=== PATIENT | female | born 1940 | race Caucasian/White ===

== ENCOUNTER 2016-08-19 05:32 | Observation (INO) | payer OTHER ==
[~2016-08-19] VITALS: Ht 174 cm; Wt 97.1 kg
[2016-08-19] VITALS (11 sets, daily range): BP systolic 100–146; BP diastolic 55–82
[~2016-08-19 05:32] MED LIST: ADV250 IH; ALBU8.5H IH; ASPI-1093 PO; ATOR10TA84 PO; AUD NEB; BUPR100SR PO; CYPR4TAB35 PO; DICY10 PO; DOXA2TAB PO; FOLI0.8T22 PO; FURO80 PO; HYDR-309 PO; LOSA50TA37 PO; NIFE30TA98 PO; PANT40TA25 PO; PHOSLOC PO; POTA10TA PO; ZARO5 PO; [UNRECOGNIZED DRUG - CODE] PO
[2016-08-19] MEDS ORDERED: SODIUM CHLORIDE 0.9% 0 ML IV ONE (05:49)
[2016-08-19] MEDS ORDERED: SODIUM CHLORIDE 0.9% 1,000 ML IV ONE ×2 (06:00→16:19)
[2016-08-19 06:38] LABS: BASOPHILS % (AUTO) 0.8 % (0.0-2.0); EOSINOPHILS % (AUTO) 4.7 % (1.0-6.0); HEMATOCRIT 33.4 % (36-46); HEMOGLOBIN 10.4 g/dL (12.0-16.0); LYMPHOCYTES # (AUTO) 2.3 K/uL (1.0-4.8); LYMPHOCYTES % (AUTO) 36.6 % (22.0-44.0); MEAN CORPUSCULAR HEMOGLOBIN 30.7 pg (26.0-34.0); MEAN CORPUSCULAR HGB CONC 31.1 G/dL (31.0-37.0); MEAN CORPUSCULAR VOLUME 99 fL (80-100); MONOCYTES # (AUTO) 0.6 K/uL (0.1-1.0); NEUTROPHILS # (AUTO) 3.1 K/uL (1.8-7.7); NEUTROPHILS % (AUTO) 48.9 % (40.0-70.0); PLATELET COUNT (AUTO) 157 K/uL (150-450); RED BLOOD CELL COUNT(AUTO) 3.38 MIL/uL (4.00-5.20); RED CELL DISTRIBUTION WIDTH 16.5 % (11.5-14.5); WHITE BLOOD COUNT (AUTO) 6.3 K/uL (4.5-11.0)
[2016-08-19 06:43] LABS: CALCIUM, TOTAL 7.3 mg/dL (8.8-10.5); CREATININE 6.49 mg/dL (0.60-1.30); POTASSIUM 4.3 mmol/L (3.5-5.1)
[2016-08-19 06:57] LABS: PROTHROMBIN TIME 10.1 SEC (9.4-11.6)
[2016-08-19] MEDS ORDERED: FentaNYL CITRATE-PF 100 MCG/2 ML VIAL ONE (07:31)
[2016-08-19] MEDS ORDERED: MIDAZOLAM HCL 2 MG/2 ML VIAL ONE (07:31)
[2016-08-19] MEDS ORDERED: LIDOCAINE HCL/PF 1% 30 ML VIAL ONE (07:32)
[2016-08-19] MEDS ORDERED: SODIUM BICARBONATE 50 MEQ/50 ML VIAL ONE (07:32)
[2016-08-19] MEDS ORDERED: MIDAZOLAM HCL 2 MG/2 ML VIAL IVP ONE ×3 (08:15)
[2016-08-19] MEDS ORDERED: METOPROLOL TARTRATE 5 MG/5 ML VIAL IVP ONE (08:15)
[2016-08-19] MEDS ORDERED: LIDOCAINE 1% 30 ML/SOD BICARB 8.4% 4 ML SQ ONE (08:15)
[2016-08-19] MEDS ORDERED: FentaNYL CITRATE-PF 100 MCG/2 ML VIAL IVP ONE ×4 (08:15→08:45)
[2016-08-19] MEDS ORDERED: METOPROLOL TARTRATE 5 MG/5 ML VIAL ONE (08:20)
[2016-08-19] MEDS ORDERED: ACETAMINOPHEN 325 MG TABLET PO PRN (09:00)
[2016-08-19] MEDS ORDERED: ALBUTEROL SULFATE HFA 90 MCG/PUFF 8 GM INHALER IH PRN (09:00)
[2016-08-19] MEDS ORDERED: ONDANSETRON HCL 4 MG/2 ML VIAL IVP PRN (09:00)
[2016-08-19] MEDS: HYDROCODONE/ACETAMINOPHEN 5-325 MG TABLET PO PRN ×2 (09:45→20:56)
[2016-08-19] MEDS: DICYCLOMINE HCL 10 MG CAPSULE PO SCH (09:48)
[2016-08-19] MEDS: LOSARTAN POTASSIUM 50 MG TABLET PO SCH (09:48)
[2016-08-19] MEDS: ASPIRIN 81 MG CHEWABLE TABLET PO SCH (09:48)
[2016-08-19] MEDS: METOLAZONE 5 MG TABLET PO SCH (09:49)
[2016-08-19] MEDS: BuPROPion HCL 100 MG SR TABLET PO SCH (09:49)
[2016-08-19] MEDS: CYPROHEPTADINE HCL 4 MG TABLET PO SCH ×2 (09:49→20:55)
[2016-08-19] MEDS: PANTOPRAZOLE SODIUM 40 MG DR TABLET PO SCH (09:49)
[2016-08-19] MEDS: NIFEdipine 30 MG ER TABLET PO SCH (09:50)
[2016-08-19] MEDS: FUROSEMIDE 80 MG TABLET PO SCH ×2 (09:50→20:55)
[2016-08-19] MEDS: POTASSIUM CHLORIDE 20 MEQ ER TABLET PO SCH (10:01)
[2016-08-19] MEDS: OxyCODONE HCL/ACETAMINOPHEN 5-325 MG TABLET PO PRN ×2 (12:06→17:59)
[2016-08-19] MEDS: CALCIUM ACETATE 667 MG CAPSULE PO SCH ×2 (12:39→17:59)
[2016-08-19] MEDS: CeFAZolin 1 GM/DEXTROSE 50 ML IV SCH ×2 (14:52→19:51)
[2016-08-19] MEDS ORDERED: SODIUM CHLORIDE 0.9% 250 ML IV ONE (19:58)
[2016-08-19] MEDS ORDERED: DOXAZOSIN MESYLATE 2 MG TABLET PO SCH (21:00)
[2016-08-19] MEDS ORDERED: ATORVASTATIN CALCIUM 10 MG TABLET PO SCH (21:00)
[2016-08-20] MEDS: CeFAZolin 1 GM/DEXTROSE 50 ML IV SCH (01:46)
[2016-08-20] MEDS: OxyCODONE HCL/ACETAMINOPHEN 5-325 MG TABLET PO PRN ×3 (01:55→09:34)
[2016-08-20 04:43] VITALS: BP 125/65
[2016-08-20] MEDS: HYDROCODONE/ACETAMINOPHEN 5-325 MG TABLET PO PRN (06:37)
[2016-08-20 07:34] VITALS: BP 153/64
[2016-08-20] MEDS: NIFEdipine 30 MG ER TABLET PO SCH (08:08)
[2016-08-20] MEDS: LOSARTAN POTASSIUM 50 MG TABLET PO SCH (08:08)
[2016-08-20] MEDS: ASPIRIN 81 MG CHEWABLE TABLET PO SCH (08:09)
[2016-08-20] MEDS: CALCIUM ACETATE 667 MG CAPSULE PO SCH (08:09)
[2016-08-20] MEDS: FUROSEMIDE 80 MG TABLET PO SCH (08:09)
[2016-08-20] MEDS: POTASSIUM CHLORIDE 20 MEQ ER TABLET PO SCH (08:09)
[2016-08-20] MEDS: DICYCLOMINE HCL 10 MG CAPSULE PO SCH (08:09)
[2016-08-20] MEDS: PANTOPRAZOLE SODIUM 40 MG DR TABLET PO SCH (08:09)
[2016-08-20] MEDS: BuPROPion HCL 100 MG SR TABLET PO SCH (08:10)
[2016-08-20] MEDS: METOLAZONE 5 MG TABLET PO SCH (08:10)
[2016-08-20] MEDS: CYPROHEPTADINE HCL 4 MG TABLET PO SCH (08:10)
[2016-08-20] MEDS ORDERED: PERCT PO (10:16)
== END 2016-08-20 11:00 | disposition home or self-care (01) ==
LOC: SDS 05:32 → 5N 09:04 → UNDOADMOB 09:04 → 5N 09:36
PROVIDERS: ADMIT Internal Medicine Cardiovascular Disease; ATTEND Internal Medicine Cardiovascular Disease
DX: I49.5 Sick sinus syndrome (principal); I48.92 Unspecified atrial flutter
CPT/HCPCS: 33208; 36415; 71010; 71020; 76000; 80048; 85025; 85610; 85730; 93005; 96365; 96375 ×2; C1785; C1892 ×2; C1899; G0378 ×2; J0690 ×2; J2250; J3010; J3490 ×3; J7030; J7050

== ENCOUNTER 2016-08-30 22:01 | Inpatient (IN) | payer OTHER ==
[~2016-08-30] VITALS: Ht 172.7 cm; Wt 94.3 kg
[~2016-08-30 22:01] MED LIST changes: +PERCT PO
[2016-08-30] MEDS ORDERED: METO-323 PO (22:08)
[2016-08-30] MEDS ORDERED: DILTIAZEM HCL 5 MG/ML 5 ML VIAL IVP ONE (22:45)
[2016-08-30] MEDS ORDERED: CALCIUM GLUCONATE 100 MG/ML 10 ML IVP ONE (22:45)
[2016-08-30 22:58] LABS: BASOPHILS % (AUTO) 0.2 % (0.0-2.0); EOSINOPHILS % (AUTO) 2.3 % (1.0-6.0); HEMOGLOBIN 10.8 g/dL (12.0-16.0); LYMPHOCYTES # (AUTO) 1.6 K/uL (1.0-4.8); LYMPHOCYTES % (AUTO) 25.2 % (22.0-44.0); MEAN CORPUSCULAR HEMOGLOBIN 31.2 pg (26.0-34.0); MEAN CORPUSCULAR HGB CONC 32.8 G/dL (31.0-37.0); MEAN CORPUSCULAR VOLUME 95 fL (80-100); MONOCYTES # (AUTO) 0.4 K/uL (0.1-1.0); NEUTROPHILS # (AUTO) 4.2 K/uL (1.8-7.7); NEUTROPHILS % (AUTO) 65.3 % (40.0-70.0); PLATELET COUNT (AUTO) 214 K/uL (150-450); RED BLOOD CELL COUNT(AUTO) 3.46 MIL/uL (4.00-5.20); RED CELL DISTRIBUTION WIDTH 16.9 % (11.5-14.5); WHITE BLOOD COUNT (AUTO) 6.4 K/uL (4.5-11.0)
[2016-08-30 23:03] LABS: ANION GAP 9 mmol/L (8-16); CALCIUM, TOTAL 7.8 mg/dL (8.8-10.5); CARBON DIOXIDE 26 mmol/L (22-29); CHLORIDE 104 mmol/L (98-107); CREATININE 8.12 mg/dL (0.60-1.30); GLOMERULAR FILTR. RATE CALC 5 mL/min (>60); POTASSIUM 4.8 mmol/L (3.5-5.1); SODIUM SERUM 139 mmol/L (136-145); UREA NITROGEN, BLOOD 62 mg/dL (7-18)
[2016-08-30 23:09] LABS: ALANINE AMINOTRANSFERASE 15 U/L (12-78); ALBUMIN 1.3 g/dL (3.4-5.0); ASPARTATE AMINOTRANSFERASE 37 U/L (15-37); BILIRUBIN,TOTAL 0.4 mg/dL (0.1-1.0); CREATINE KINASE, TOTAL 48 U/L (26-192)
[2016-08-30 23:12] LABS: B-TYPE NATRIURETIC PEPTIDE 490 pg/mL (0-100)
[2016-08-30] MEDS ORDERED: ACETAMINOPHEN 325 MG TABLET PO PRN (23:30)
[2016-08-30] MEDS ORDERED: 0.9% SODIUM CHLORIDE 10 ML SYRINGE IVP PRN (23:30)
[2016-08-31] VITALS (7 sets, daily range): BP systolic 105–137; BP diastolic 52–81
[2016-08-31] MEDS ORDERED: HYDROmorphone 2 MG/ML SYRINGE IVP ONE
[2016-08-31] MEDS: ONDANSETRON HCL 4 MG/2 ML VIAL IVP PRN ×3 (10:38→17:32)
[2016-08-31] MEDS: CALCIUM ACETATE 667 MG CAPSULE PO SCH ×2 (12:00→17:52)
[2016-08-31] MEDS: CALCITRIOL 0.25 MCG CAPSULE PO SCH (12:51)
[2016-08-31] MEDS: FUROSEMIDE 80 MG TABLET PO SCH ×2 (12:51→20:16)
[2016-08-31] MEDS ORDERED: ZOLPIDEM TARTRATE 10 MG TABLET PO PRN (15:00)
[2016-08-31] MEDS ORDERED: DICYCLOMINE HCL 10 MG CAPSULE PO PRN (15:00)
[2016-08-31] MEDS ORDERED: HYDROCODONE/ACETAMINOPHEN 5-325 MG TABLET PO PRN (15:00)
[2016-08-31] MEDS ORDERED: IPRATROPIUM BROMIDE 0.5 MG/2.5 ML NEB SOLUTION NEB PRN (15:00)
[2016-08-31] MEDS ORDERED: ACETAMINOPHEN 325 MG TABLET PO PRN (15:00)
[2016-08-31] MEDS ORDERED: MORPHINE SULFATE 2 MG/ML SYRINGE IVP PRN (15:00)
[2016-08-31] MEDS ORDERED: MAGNESIUM HYDROXIDE SUSPENSION 30 ML UDCUP PO PRN (15:00)
[2016-08-31] MEDS ORDERED: KDUR20 PO (15:04)
[2016-08-31] MEDS: NITROGLYCERIN 2% (1 GM=INCH) PACKET TP SCH ×2 (17:32→23:42)
[2016-08-31] MEDS ORDERED: CALCIUM ACETATE 667 MG CAPSULE PO SCH (18:00)
[2016-08-31] MEDS: DOXAZOSIN MESYLATE 2 MG TABLET PO SCH (20:16)
[2016-08-31] MEDS: ATORVASTATIN CALCIUM 10 MG TABLET PO SCH (20:16)
[2016-08-31] MEDS: CYPROHEPTADINE HCL 4 MG TABLET PO SCH (20:16)
[2016-08-31] MEDS: DOCUSATE SODIUM 100 MG CAPSULE PO SCH (20:19)
[2016-08-31] MEDS ORDERED: METOPROLOL SUCCINATE 25 MG ER TABLET PO SCH (21:00)
[2016-08-31] MEDS: NIFEdipine 30 MG ER TABLET PO SCH (21:00)
[2016-08-31] MEDS ORDERED: FUROSEMIDE 80 MG TABLET PO SCH (21:00)
[2016-09-01] VITALS (7 sets, daily range): BP systolic 102–154; BP diastolic 51–75
[2016-09-01] MEDS: NITROGLYCERIN 2% (1 GM=INCH) PACKET TP SCH ×4 (06:00→23:36)
[2016-09-01 06:55] LABS: ANION GAP 10 mmol/L (8-16); CALCIUM, TOTAL 7.5 mg/dL (8.8-10.5); CARBON DIOXIDE 25 mmol/L (22-29); CHLORIDE 105 mmol/L (98-107); CHOL/HDL RATIO 2.3 (3.9-5.7); CREATINE KINASE, TOTAL 30 U/L (26-192); CREATININE 7.77 mg/dL (0.60-1.30); GLOMERULAR FILTR. RATE CALC 5 mL/min (>60); POTASSIUM 3.7 mmol/L (3.5-5.1); SODIUM SERUM 140 mmol/L (136-145); UREA NITROGEN, BLOOD 64 mg/dL (7-18)
[2016-09-01 07:22] LABS: B-TYPE NATRIURETIC PEPTIDE 194 pg/mL (0-100)
[2016-09-01] MEDS: PANTOPRAZOLE SODIUM 40 MG/VIAL IVP SCH (08:29)
[2016-09-01] MEDS: CALCIUM ACETATE 667 MG CAPSULE PO SCH ×3 (08:32→18:11)
[2016-09-01] MEDS: FUROSEMIDE 80 MG TABLET PO SCH ×2 (08:33→21:20)
[2016-09-01] MEDS: ASPIRIN 81 MG CHEWABLE TABLET PO SCH (08:33)
[2016-09-01] MEDS: VITAMIN B COMP/VIT C/FOLIC ACID CAPSULE PO SCH (08:34)
[2016-09-01] MEDS: POTASSIUM CHLORIDE 20 MEQ ER TABLET PO SCH (08:34)
[2016-09-01] MEDS: CYPROHEPTADINE HCL 4 MG TABLET PO SCH ×2 (08:36→21:20)
[2016-09-01] MEDS: DOCUSATE SODIUM 100 MG CAPSULE PO SCH ×2 (08:36→21:00)
[2016-09-01] MEDS: ONDANSETRON HCL 4 MG/2 ML VIAL IVP PRN ×2 (08:38→14:38)
[2016-09-01] MEDS ORDERED: PANTOPRAZOLE SODIUM 40 MG DR TABLET PO SCH (09:00)
[2016-09-01] MEDS ORDERED: ASPIRIN 81 MG EC TABLET PO SCH (09:00)
[2016-09-01] MEDS ORDERED: ONDA4 PO (11:33)
[2016-09-01] MEDS: CALCITRIOL 0.25 MCG CAPSULE PO SCH (12:57)
[2016-09-01] MEDS: METOLAZONE 5 MG TABLET PO SCH (12:58)
[2016-09-01] MEDS: LOSARTAN POTASSIUM 50 MG TABLET PO SCH (12:59)
[2016-09-01] MEDS: BuPROPion HCL 100 MG SR TABLET PO SCH (13:01)
[2016-09-01] MEDS ORDERED: MAGNESIUM SULFATE 1 GM in DEXTROSE 5%-WATER 50 ML IV ONE (19:30)
[2016-09-01] MEDS: NIFEdipine 30 MG ER TABLET PO SCH (21:00)
[2016-09-01] MEDS ORDERED: METOPROLOL SUCCINATE 50 MG ER TABLET PO SCH (21:00)
[2016-09-01] MEDS ORDERED: SODIUM CHLORIDE 0.9% 250 ML IV ONE (21:11)
[2016-09-01] MEDS: APIXABAN 2.5 MG TABLET PO SCH (21:20)
[2016-09-01] MEDS: DOXAZOSIN MESYLATE 2 MG TABLET PO SCH (21:20)
[2016-09-01] MEDS: ATORVASTATIN CALCIUM 10 MG TABLET PO SCH (21:20)
[2016-09-02 05:19] VITALS: BP 133/71
[2016-09-02] MEDS: NITROGLYCERIN 2% (1 GM=INCH) PACKET TP SCH ×2 (05:29→12:40)
[2016-09-02 07:13] VITALS: BP 106/50
[2016-09-02] MEDS: ASPIRIN 81 MG CHEWABLE TABLET PO SCH (08:13)
[2016-09-02] MEDS: APIXABAN 2.5 MG TABLET PO SCH (08:13)
[2016-09-02] MEDS: PANTOPRAZOLE SODIUM 40 MG/VIAL IVP SCH (08:13)
[2016-09-02] MEDS: CALCIUM ACETATE 667 MG CAPSULE PO SCH ×2 (08:13→12:41)
[2016-09-02] MEDS: POTASSIUM CHLORIDE 20 MEQ ER TABLET PO SCH (08:14)
[2016-09-02] MEDS: VITAMIN B COMP/VIT C/FOLIC ACID CAPSULE PO SCH (08:14)
[2016-09-02] MEDS: FUROSEMIDE 80 MG TABLET PO SCH (08:14)
[2016-09-02] MEDS: DOCUSATE SODIUM 100 MG CAPSULE PO SCH (08:22)
[2016-09-02] MEDS ORDERED: MAGNESIUM CHLORIDE 64 MG ER TABLET PO SCH (09:45)
[2016-09-02] MEDS: CYPROHEPTADINE HCL 4 MG TABLET PO SCH (12:36)
[2016-09-02] MEDS: METOLAZONE 5 MG TABLET PO SCH (12:42)
[2016-09-02] MEDS: BuPROPion HCL 100 MG SR TABLET PO SCH (12:42)
[2016-09-02] MEDS: CALCITRIOL 0.25 MCG CAPSULE PO SCH (12:44)
[2016-09-02 12:48] VITALS: BP 125/59
[2016-09-02] MEDS: LOSARTAN POTASSIUM 50 MG TABLET PO SCH (16:00)
[2016-09-02 16:11] VITALS: BP 113/55
[2016-09-02] MEDS ORDERED: APIX2.5T PO (16:28)
[2016-09-02] MEDS ORDERED: SLOMG PO (16:29)
[2016-09-02] MEDS ORDERED: MAGNESIUM OXIDE 400 MG TABLET PO ONE (16:30)
== END 2016-09-02 15:00 | disposition home or self-care (01) | DRG 308 ==
LOC: EMS 22:03 → 5S 23:47
PROVIDERS: ADMIT Internal Medicine; ATTEND Internal Medicine
DX: I48.91 Unspecified atrial fibrillation (principal); E43 Unspecified severe protein-calorie malnutrition; I13.2 Hypertensive heart and chronic kidney disease with heart failure and with stage 5 chronic kidney disease, or end stage renal disease; E11.21 Type 2 diabetes mellitus with diabetic nephropathy; N18.6 End stage renal disease; N05.5 Unspecified nephritic syndrome with diffuse mesangiocapillary glomerulonephritis; D47.2 Monoclonal gammopathy; J44.9 Chronic obstructive pulmonary disease, unspecified; F32.9 Major depressive disorder, single episode, unspecified; K21.9 Gastro-esophageal reflux disease without esophagitis; E78.00 Pure hypercholesterolemia, unspecified; I50.9 Heart failure, unspecified; R00.0 Tachycardia, unspecified; F17.200 Nicotine dependence, unspecified, uncomplicated; Z82.49 Family history of ischemic heart disease and other diseases of the circulatory system; Z83.3 Family history of diabetes mellitus; Z88.5 Allergy status to narcotic agent; Z99.2 Dependence on renal dialysis
CPT/HCPCS: 74010; 83735; 90945; 93005; 93306; 96374; 96375; 99285; C9113; J0610; J1170; J2270; J2405; J3475; J3490; J7050; J7060